=== PATIENT | female | born 1960 | race Two or more races ===

== ENCOUNTER → 2019-08-10 | Outpatient (CLI) | payer BC | END | disposition home or self-care (01) | LOC: MSC 11:30 | PROVIDERS: ATTEND Anesthesiology | DX: M47.817 Spondylosis without myelopathy or radiculopathy, lumbosacral region (principal); M46.96 Unspecified inflammatory spondylopathy, lumbar region; M51.26 Other intervertebral disc displacement, lumbar region; M62.830 Muscle spasm of back; G89.4 Chronic pain syndrome; M25.9 Joint disorder, unspecified; Z79.1 Long term (current) use of non-steroidal anti-inflammatories (NSAID); Z79.899 Other long term (current) drug therapy ==

== ENCOUNTER → 2019-10-05 | Outpatient (CLI) | payer BC | END | disposition home or self-care (01) | LOC: MSC 11:10 | PROVIDERS: ATTEND Anesthesiology | DX: M46.96 Unspecified inflammatory spondylopathy, lumbar region (principal); M51.26 Other intervertebral disc displacement, lumbar region; M47.817 Spondylosis without myelopathy or radiculopathy, lumbosacral region; M62.830 Muscle spasm of back; G89.4 Chronic pain syndrome; M25.9 Joint disorder, unspecified; G20 Parkinson's disease; Z79.1 Long term (current) use of non-steroidal anti-inflammatories (NSAID); Z79.899 Other long term (current) drug therapy; Z80.6 Family history of leukemia; Z83.3 Family history of diabetes mellitus; Z82.49 Family history of ischemic heart disease and other diseases of the circulatory system; Z83.1 Family history of other infectious and parasitic diseases; Z82.61 Family history of arthritis ==

== ENCOUNTER 2020-04-04 11:15 | Outpatient (CLI) | payer BC | END 2020-04-04 23:59 | disposition home or self-care (01) | LOC: MSC 11:15 | PROVIDERS: ATTEND Anesthesiology | DX: M46.96 Unspecified inflammatory spondylopathy, lumbar region (principal); M51.26 Other intervertebral disc displacement, lumbar region; M47.817 Spondylosis without myelopathy or radiculopathy, lumbosacral region; M62.830 Muscle spasm of back; G89.4 Chronic pain syndrome; M25.9 Joint disorder, unspecified; G20 Parkinson's disease; R51 Headache; Z82.61 Family history of arthritis; Z82.49 Family history of ischemic heart disease and other diseases of the circulatory system; Z83.3 Family history of diabetes mellitus; Z80.9 Family history of malignant neoplasm, unspecified; Z83.79 Family history of other diseases of the digestive system; Z79.1 Long term (current) use of non-steroidal anti-inflammatories (NSAID); Z79.899 Other long term (current) drug therapy ==